=== PATIENT | female | born 1985 | race Caucasian/White ===

== ENCOUNTER → 2024-06-03 | Outpatient (CLI) | payer OTHER, BC ==
[2024-06-03 12:21] LABS: Albumin, Blood 3.3 g/dL (3.4-5.0); Albumin/Globulin Ratio 0.8 (0.8-1.8); Bilirubin, Total 0.7 mg/dL (0.1-1.0); Bun/Creatinine Ratio 23.9 (12.0-20.0); Calcium, Blood 8.7 mg/dL (8.5-10.1); Creatinine, Blood 0.75 mg/dL (0.40-1.00); Globulin, Blood 3.9 g/dL (2.2-4.0); Total Protein, Blood 7.2 g/dL (6.4-8.2)
== END ==
LOC: LAB SHORT 08:15 → LAB 08:15
DX: I10 Essential (primary) hypertension (principal)
CPT/HCPCS: 80053